=== PATIENT | female | born 1970 | race Caucasian/White ===

== ENCOUNTER 2018-09-15 11:32 | Emergency (ER) | payer OTHER ==
[~2018-09-15] VITALS: Ht 193 cm; Wt 90.7 kg
== END 2018-09-15 13:39 | disposition home or self-care (01) ==
LOC: ER 11:32
DX: M79.645 Pain in left finger(s) (principal); M12.542 Traumatic arthropathy, left hand; S60.05 Contusion of little finger without damage to nail; W18.09XS Striking against other object with subsequent fall, sequela